=== PATIENT | male | born 1980 | race African-American/Black ===

== ENCOUNTER → 2016-12-14 | Day surgery (SDC) | payer OTHER ==
[~2016-12-14] MED LIST: ALBUTEROL20 ml INH; CELEXA20 M1; CLARITIN10 M3; DULERA 100 MCG/13 GM INH; FLOVENT DISKUS50 MCG; OMEPRAZOLE40 M1 PO; QVAR8.7 GM
--- NOTE | ~2016-12-14 | OR ---
Unit #: [id number] #: [id number] Patient: ROSE WALLS [id number] [place], [place] [address] [id number] MR#: [id number] NAME: ROSE WALLS ROOM: Date of Procedure: 12/14/2016 Admission Date: 12/14/2016 Surgeon: Delfino Ballard M.D. : 1980 Attending Physician: Delfino Ballard M.D. Referring Physician: Delfino Ballard M.D. Primary Care Physician: Mele Rock M.D. OPERATIVE REPORT PREOPERATIVE DIAGNOSES Dyspepsia and epigastric pain. PROCEDURES PERFORMED Upper gastrointestinal endoscopy and biopsy. POSTOPERATIVE DIAGNOSES 1. The patient had mild prepyloric antral erosive gastritis. This was in the form of erosions and erythema diffusely scattered in the antral area. 2. Rest of the examination up to third part of duodenum was normal. A biopsy was obtained from the antrum for CLOtest. RECOMMENDATIONS The patient will be started on pantoprazole 40 mg p.o. daily. He will be followed up in the office in 8 to 10 weeks' time. SEDATION USED MAC. DESCRIPTION OF PROCEDURE Following detailed explanation of potential risks and complications of an upper endoscopy, namely perforation, bleeding, and complication related to sedation, the patient was brought to GI lab and laid in the left lateral decubitus position. Lubricated tip of the Olympus video upper endoscope was passed through the bite block into the proximal esophagus under direct vision. The entire esophageal mucosa was examined and appeared normal. Z-line was nicely demarcated, there being no esophagitis or hiatus hernia. The scope was then advanced into the gastric cavity and the latter was insufflated. Mucosa of the fundus, body, and antrum was examined and the patient was noted to have mild diffuse prepyloric antral erythema erosions indicating antral gastritis. Pylorus was intubated with visualization of the normal duodenal bulb and second and third part of the duodenum. Upon withdrawal and retroflexion; incisura, cardia, and greater curve was examined and a biopsy was obtained from the antrum for CLOtest. The scope was then withdrawn in the distal esophagus. Entire esophageal mucosa was examined all the way up to pharynx. No additional findings were noted. The patient tolerated the procedure without any postprocedure complications. Dictated by... Delfino Ballard M.D. Unit #: [id number] #: [id number] Patient: ROSE WALLS MATTI/donte TD: 12/20/2016 13:47 JOB #: [id number] CC: Mele Rock M.D. OPERATIVE REPORT Page 1 of 1 X Delfino Ballard MD X PROCEDURE OPERATIVE NOTE
[2016-12-14 15:45] LABS: BASOPHIL% 0.7 % (0-2.5); EOSINOPHIL# 0.1 X10e3 (0-0.7); EOSINOPHIL% 2.6 % (0.0-7.0); HEMATOCRIT 40.6 % (38.0-50.0); HEMOGLOBIN 13.2 gm/dL (13.0-16.0); LYMPHOCYTE# 2.5 X10e3 (1.0-3.5); LYMPHOCYTE% 46.9 % (17.0-45.0); MEAN CELL VOLUME 94.3 FL (83-96); MEAN CORPUSCULAR HEMOGLOBIN 30.6 PG (28-34); MEAN CORPUSCULAR HGB CONC 32.5 g/dL (30-36); MONOCYTE# 0.4 X10e3 (0-1.0); MONOCYTE% 6.7 % (3.0-12.0); NEUTROPHIL# 2.3 X10e3 (1.5-7.1); NEUTROPHIL% 43.1 % (40-75); PLATELET COUNT 178 X10e3 (140-420); RED BLOOD COUNT 4.31 X10e (3.90-5.60); RED CELL DISTRIBUTION WIDTH 13.2 % (11.0-15.5); WHITE BLOOD COUNT 5.4 X10e3 (4.0-10.5)
[2016-12-14 15:50] LABS: DIFF IND NO
[2016-12-14 16:41] LABS: ALBUMIN SERUM 3.9 g/dL (3.5-5.0); BILIRUBIN,TOTAL 1.1 mg/dL (0.2-2.0); CALCIUM SERUM 8.8 mg/dL (8.4-10.2); GLOM FILT RATE Estimated 110.2 mL/min (>60); POTASSIUM 3.7 mmol/L (3.5-5.1); PROTEIN TOTAL SERUM 6.3 g/dL (6.0-8.3)
== END | disposition home or self-care (01) ==
LOC: COPS 13:14
PROVIDERS: Internal Medicine Gastroenterology
DX: K29.00 Acute gastritis without bleeding (principal); J43.9 Emphysema, unspecified; K21.9 Gastro-esophageal reflux disease without esophagitis; F17.210 Nicotine dependence, cigarettes, uncomplicated; Z79.51 Long term (current) use of inhaled steroids; Z79.899 Other long term (current) drug therapy
CPT/HCPCS: 80053; 82150; 83690; 84443; 85025; 87077; J2250